=== PATIENT | male | born 1955 | race Two or more races ===

== ENCOUNTER → 2024-06-28 | Outpatient (CLI) | payer OTHER, MEDICAID, SELFPAY ==
[2024-06-28 12:01] LABS: Prostate Specific Antigen 1.35 ng/mL (0-4.00)
[2024-07-03 06:46] LABS: Testosterone, Free,Dialysis 72.8 pg/mL (35.0-155.0); Testosterone, Total, Dialysis 376 ng/dL (250-1100)
== END | disposition home or self-care (01) ==
PROVIDERS: PCP Nurse Practitioner Family; Referring Provider Surgery; Visit Provider Surgery
DX: N52.9 Male erectile dysfunction, unspecified (principal)
CPT/HCPCS: 36415; 84153; 84402; 84403

== ENCOUNTER → 2024-10-05 | Outpatient (CLI) | payer OTHER, MEDICAID, SELFPAY ==
--- NOTE | 2024-10-05 08:09 | XR_ITS ---
Examination: PA lateral chest 2 views TECHNIQUE: Upright PA lateral chest 2 views Date and time: October 05, 2024 0830 hours INDICATIONS: Left posterior shoulder pain one month. FINDINGS: Minor prominence left ventricle Accentuation interstitial markings No lobar pneumonia. No pulmonary edema IMPRESSION: Suspicious for pulmonary fibrosis, consider high resolution CT chest without contrast follow-up Consider dedicated left shoulder films follow-up
--- NOTE | 2024-10-05 08:09 | XR_ITS ---
Examination: Lumbar spine 3 views Technique one AP lateral coned lateral lower lumbar spine 3 views Date and time: October 05, 2024 0833 hours INDICATIONS: Lower back pain beginning 4 months ago. FINDINGS: Satisfactory alignment lumbar vertebral bodies Significant lumbar degenerative disc disease at the lower 4 lumbar levels, advanced L2-L3, L3-L4, L5-S1 Moderate lumbar spondylosis IMPRESSION: Significant lumbar degenerative disc disease at the lower 4 lumbar levels
== END | disposition home or self-care (01) ==
LOC: CDIM 07:57
PROVIDERS: PCP Nurse Practitioner Family; Referring Provider Nurse Practitioner Family; Visit Provider Nurse Practitioner Family
DX: R07.9 Chest pain, unspecified (principal); M51.360 Other intervertebral disc degeneration, lumbar region with discogenic back pain only
CPT/HCPCS: 71046; 72100

== ENCOUNTER → 2024-11-16 | Outpatient (CLI) | payer OTHER, MEDICAID, SELFPAY ==
--- NOTE | 2024-11-16 13:30 | XR_ITS ---
Examination: Retroperitoneal ultrasound, complete Technique: Multiple high resolution grayscale images of the retroperitoneum obtained, including kidneys and bladder. Exam date and time:November 16, 2024 1312 hours INDICATIONS: Right flank pain beginning 2 months ago FINDINGS: Right kidney 9.9 cm in the cortex 1.8 cm Left kidney 10.4 cm cortex 1.2 cm Moderate renal scar formation No hydronephrosis No bladder mass or bladder calculi Bladder prevoid volume 106 cc Normal prostate size no prostate nodules IMPRESSION: Moderate renal parenchymal scar formation No hydronephrosis
--- NOTE | 2024-11-16 14:30 | XR_ITS ---
Examination: CT chest, without intravenous contrast. Sagittal and coronal 2-D reconstructions. Exam date and time: November 16, 2024 1331 hours INDICATIONS: Left upper back pain chest pain 2 months CTDI:vol (mGy) 16.1 DLP: (mGycm) 598 Technique: Multiple 3.0 mm axial sections of the chest to been obtained. Bone and lung density settings are obtained. Sagittal and coronal 2-D reconstructions have been obtained. Low dose protocols were performed. One or more of the following dose reduction techniques were used; automated exposure control, adjustment of the mA and/or KV according to patient size, use of iterative reconstruction technique. Findings: No thoracic degenerative aneurysm dilatation Pulmonary artery segments are not enlarged. Mild enlargement cardiac contour. No paratracheal tracheobronchial or bronchopulmonary adenopathy. COPD with multiple areas of airspace destruction. 7 mm pulmonary nodule right lower lobe image 247 No lobar pneumonia or pulmonary edema No visualized liver or splenic lesion Contracted gallbladder No pancreatic or adrenal mass Moderate renal scar formation Moderate osteopenia IMPRESSION: COPD 7 mm pulmonary nodule right lower lobe, with this study as baseline recommend 6 month follow-up CT chest without contrast No pneumonia or pulmonary edema
== END | disposition home or self-care (01) ==
PROVIDERS: PCP Nurse Practitioner Family; Referring Provider Nurse Practitioner Family; Visit Provider Nurse Practitioner Family
DX: J44.9 Chronic obstructive pulmonary disease, unspecified (principal); R91.1 Solitary pulmonary nodule; N28.89 Other specified disorders of kidney and ureter
CPT/HCPCS: 71250; 76770